=== PATIENT | male | born 1995 | race Caucasian/White ===

== ENCOUNTER 2018-11-05 14:09 | Emergency (ER) | payer OTHER ==
[2018-11-05] MEDS: DESMOPRESSIN 0.01% NASAL SOLN 5 ML BTL (15:50)
== END 2018-11-05 16:19 | disposition home or self-care (01) ==
LOC: M ED 14:09
DX: S09.90XA Unspecified injury of head, initial encounter (principal); S80.01XA Contusion of right knee, initial encounter; S80.02XA Contusion of left knee, initial encounter; V43.52XA Car driver injured in collision with other type car in traffic accident, initial encounter; Y92.410 Unspecified street and highway as the place of occurrence of the external cause
CPT/HCPCS: 73564

== ENCOUNTER 2019-05-02 18:19 | Emergency (ER) | payer BC, OTHER, SELFPAY ==
[~2019-05-02] VITALS: Ht 182.9 cm; Wt 69.5 kg
[2019-05-02 18:19] VITALS: BP 125/71
[~2019-05-02 18:19] MED LIST: CYCL10TA PO; DESM10SP; IBUP-1022 PO; ZOFR4TAB14 PO
--- NOTE | 2019-05-03 09:28 | REP ---
RIGHT FIFTH DIGIT, FOUR VIEWS: Four views of the right fifth digit performed. There is a nondisplaced fracture of the fifth distal phalanx. No other acute fracture or dislocation is seen. Joint spaces are unremarkable. IMPRESSION: Nondisplaced transverse fracture fifth distal phalanx. Electronically Signed by Adebayo Ledezma MD 05/03/2019 04:26 P
== END 2019-05-02 19:18 | disposition home or self-care (01) ==
LOC: M ED 18:19
DX: S62.666A Nondisplaced fracture of distal phalanx of right little finger, initial encounter for closed fracture (principal); W01.0XXA Fall on same level from slipping, tripping and stumbling without subsequent striking against object, initial encounter; Y92.410 Unspecified street and highway as the place of occurrence of the external cause; D68.0 Von Willebrand disease; K21.9 Gastro-esophageal reflux disease without esophagitis; K58.9 Irritable bowel syndrome, unspecified

== ENCOUNTER 2019-05-08 04:43 | Emergency (ER) | payer BC, SELFPAY ==
[2019-05-08 05:29] LABS: HEMATOCRIT 44.6 % (42.0-52.0); HEMOGLOBIN 15.5 g/dl (13.5-17.5); MEAN CORPUSCULAR HEMOGLOBIN 31.5 pg (27.0-33.0); MEAN CORPUSCULAR HGB CONC 34.8 g/dl (32.0-36.5); MEAN CORPUSCULAR VOLUME 90.7 fl (80.0-96.0); PLATELET COUNT, AUTOMATED 265 10^3/uL (150-450); RED BLOOD COUNT 4.92 10^6/uL (4.30-6.10); WHITE BLOOD COUNT 10.5 10^3/uL (4.0-10.0)
[2019-05-08 05:38] LABS: AMPHETAMINES LEVEL URINE NEGATIVE (NEGATIVE); BARBITURATES URINE NEGATIVE (NEGATIVE); BENZODIAZEPINES URINE NEGATIVE (NEGATIVE); CANNABINOIDS URINE POSITIVE (NEGATIVE); COCAINE METABOLITE URINE NEGATIVE (NEGATIVE); METHADONE URINE NEGATIVE (NEGATIVE); OPIATES URINE NEGATIVE (NEGATIVE); PHENCYCLIDINE URINE NEGATIVE (NEGATIVE)
[2019-05-08 05:53] LABS: ACETAMINOPHEN LEVEL < 2.0 UG/ML (10.0-30.0); BLOOD UREA NITROGEN 13 MG/DL (7-18); CALCIUM LEVEL 9.5 MG/DL (8.5-10.1); CARBON DIOXIDE LEVEL 27 MEQ/L (21-32); CHLORIDE LEVEL 105 MEQ/L (98-107); CREATININE FOR GFR 0.89 MG/DL (0.70-1.30); ETHYL ALCOHOL (ETHANOL) 0.148 % (0.000-0.010); GLOMERULAR FILTRATION RATE > 60.0 (>60); GLUCOSE, FASTING 93 MG/DL (70-100); POTASSIUM SERUM 3.8 MEQ/L (3.5-5.1); SODIUM LEVEL 140 MEQ/L (136-145)
[2019-05-08 07:10] VITALS: BP 121/80
== END 2019-05-08 07:34 | disposition home or self-care (01) ==
LOC: M ED 04:43
DX: F10.120 Alcohol abuse with intoxication, uncomplicated (principal); Z60.9 Problem related to social environment, unspecified; D68.0 Von Willebrand disease
CPT/HCPCS: 36415; 80048; 80307; 85027; 99284; G0480

== ENCOUNTER → 2022-10-16 | Outpatient (CLI) | payer BC ==
[~2022-10-16] MED LIST changes: +CYCL-707 PO; -CYCL10TA PO
== END ==
LOC: M WUC 15:41
PROVIDERS: ATTEND Physician Assistant
DX: M77.31 Calcaneal spur, right foot (principal); M79.671 Pain in right foot

== ENCOUNTER → 2024-03-06 | Outpatient (CLI) | payer OTHER ==
[2024-03-06 16:06] LABS: BASO % 0.6 % (0.0-1.0); EOS # 0.1 10^3/uL (0.0-0.5); EOS % 1.7 % (0.0-3.0); HEMATOCRIT 43.3 % (42.0-52.0); HEMOGLOBIN 15.1 g/dl (13.5-17.5); LYMPH % 29.1 % (24.0-44.0); MEAN CORPUSCULAR HEMOGLOBIN 31.7 pg (27.0-33.0); MEAN CORPUSCULAR HGB CONC 34.9 g/dl (32.0-36.5); MONO # 0.7 10^3/uL (0.0-0.8); MONO % 10.1 % (2.0-8.0); NEUTROPHILS # 4.1 10^3/uL (1.5-8.5); NEUTROPHILS % 58.2 % (36.0-66.0); PLATELET COUNT, AUTOMATED 269 10^3/uL (150-450); RED BLOOD COUNT 4.76 10^6/uL (4.30-6.10)
[2024-03-06 16:21] LABS: INR 1.04; PARTIAL THROMBOPLASTIN TIME 29.5 SECONDS (24.8-34.2); PROTHROMBIN TIME 13.3 SECONDS (12.5-14.5)
== END ==
LOC: M LAB 15:06
PROVIDERS: ATTEND Internal Medicine Hematology
DX: D68.00 Von Willebrand disease, unspecified (principal)

== ENCOUNTER → 2024-03-12 | Outpatient (REF) | payer OTHER ==
[2024-03-12 17:56] LABS: ALBUMIN 4.4 G/DL (3.2-5.2); ALKALINE PHOSPHATASE 69 U/L (46-116); ALT/SGPT 47 U/L (7.0-40); AST/SGOT 20 U/L (<34); BILIRUBIN,TOTAL 0.6 MG/DL (0.3-1.2); BLOOD UREA NITROGEN 12 MG/DL (9-23); CALCIUM LEVEL 9.6 MG/DL (8.5-10.1); CARBON DIOXIDE LEVEL 30 MMOL/L (20-31); CHLORIDE LEVEL 104 MMOL/L (98-107); CHOLESTEROL LEVEL 121 MG/DL (<200); CHOLESTEROL RISK RATIO 3.27 (<5); CREATININE FOR GFR 0.91 MG/DL (0.70-1.30); GLOMERULAR FILTRATION RATE > 60.0 (>60); GLUCOSE, FASTING 97 MG/DL (60-100); LDL CHOLESTEROL 60.6 MG/DL (<100); POTASSIUM SERUM 3.9 MMOL/L (3.5-5.1); SODIUM LEVEL 140 MMOL/L (136-145); THYROID STIMULATING HORMONE 0.961 uIU/ML (0.55-4.78); TOTAL PROTEIN 7.1 G/DL (5.7-8.2); TRIGLYCERIDES LEVEL 117 MG/DL (<150)
== END ==
LOC: M LAB REF 16:04
PROVIDERS: ATTEND Pediatrics
DX: Z68.26 Body mass index [BMI] 26.0-26.9, adult (principal); E66.3 Overweight; D68.00 Von Willebrand disease, unspecified

== ENCOUNTER → 2024-04-22 | Outpatient (CLI) | payer OTHER | LOC: M WUC 10:43 | PROVIDERS: ATTEND Nurse Practitioner Family | DX: M25.572 Pain in left ankle and joints of left foot (principal); R93.6 Abnormal findings on diagnostic imaging of limbs; M77.32 Calcaneal spur, left foot ==

== ENCOUNTER → 2024-10-20 | Outpatient (CLI) | payer MEDICAID | LOC: M OUTALCOH 08:48 | PROVIDERS: ATTEND Psychiatry & Neurology Psychiatry | DX: F10.10 Alcohol abuse, uncomplicated (principal); F12.10 Cannabis abuse, uncomplicated; Z72.0 Tobacco use ==

== ENCOUNTER → 2024-11-17 | Outpatient (RCR) | payer MEDICAID | LOC: M OUTALCOH 11-02 12:57 | PROVIDERS: ATTEND Psychiatry & Neurology Psychiatry | DX: F10.10 Alcohol abuse, uncomplicated (principal); F12.10 Cannabis abuse, uncomplicated; Z72.0 Tobacco use ==

== ENCOUNTER 2024-12-15 15:00 | Outpatient (RCR) | payer MEDICAID | END 2024-12-18 | LOC: M OUTALCOH 15:00 | PROVIDERS: ATTEND Psychiatry & Neurology Psychiatry | DX: F10.10 Alcohol abuse, uncomplicated (principal); F12.10 Cannabis abuse, uncomplicated; Z72.0 Tobacco use ==

== ENCOUNTER 2024-12-24 08:58 | Outpatient (RCR) | payer MEDICAID | END 2025-01-15 | LOC: M OUTALCOH 08:58 | PROVIDERS: ATTEND Psychiatry & Neurology Psychiatry | DX: F10.10 Alcohol abuse, uncomplicated (principal); F12.10 Cannabis abuse, uncomplicated; Z72.0 Tobacco use ==